=== PATIENT | male | born 1995 | race Caucasian/White ===

== ENCOUNTER 2017-06-10 03:39 | Emergency (ER) | payer SELFPAY ==
[~2017-06-10] VITALS: Ht 180.3 cm; Wt 91.0 kg
[2017-06-10 03:53] VITALS: BP 115/62
== END 2017-06-10 05:45 | disposition left against medical advice (07) ==
LOC: ER 03:39
DX: M54.5 Low back pain (principal); Z53.21 Procedure and treatment not carried out due to patient leaving prior to being seen by health care provider

== ENCOUNTER 2019-11-12 21:52 | Emergency (ER) | payer MEDICAID ==
[~2019-11-12] VITALS: Ht 180.3 cm; Wt 82.0 kg
[2019-11-12 22:17] VITALS: BP 121/73
[2019-11-12] MEDS ORDERED: ACETAMINOPHEN 325MG TABLET PO ONE (22:45)
== END 2019-11-13 14:32 | disposition home or self-care (01) ==
LOC: ER 21:52
DX: S00.93XA Contusion of unspecified part of head, initial encounter (principal); X58.XXXA Exposure to other specified factors, initial encounter; Y93.89 Activity, other specified; Y92.89 Other specified places as the place of occurrence of the external cause; Y99.8 Other external cause status
CPT/HCPCS: 99282

== ENCOUNTER 2021-12-23 22:32 | Emergency (ER) | payer MEDICAID ==
[~2021-12-23] VITALS: Ht 180.3 cm; Wt 82.0 kg
[2021-12-23 22:40] VITALS: BP 116/89
== END 2021-12-24 01:41 | disposition left against medical advice (07) ==
LOC: ER 22:32
DX: Z53.21 Procedure and treatment not carried out due to patient leaving prior to being seen by health care provider (principal)

== ENCOUNTER 2023-01-18 00:40 | Emergency (ER) | payer MEDICAID ==
[~2023-01-18] VITALS: Ht 180.3 cm; Wt 90.0 kg
[2023-01-18 00:57] VITALS: BP 152/78; PULSE 101; RESP 18; TEMP 99.2; O2SAT 98
== END 2023-01-18 02:30 | disposition home or self-care (01) ==
LOC: ER 00:40
DX: R68.89 Other general symptoms and signs (principal); F12.10 Cannabis abuse, uncomplicated; Z00.00 Encounter for general adult medical examination without abnormal findings
CPT/HCPCS: 99281